=== PATIENT | female | born 1960 | race Caucasian/White ===

== ENCOUNTER → 2016-08-30 | Outpatient (CLI) | payer OTHER ==
[~2016-08-30] MED LIST: ASPI-110 PO; CENTTAB PO; ESTR1TAB PO; FENO145T2 PO; FISH1000 PO; GLIM1TAB PO; LISI-515 PO; MACR100C2 PO; MULTTAB67 PO; [UNRECOGNIZED DRUG - CODE] PO
[2016-08-30 15:12] LABS: BACTERIA, URINE OCC /hpf; BLOOD, URINE NEG (NEG); COMMENT (UR) CULT NOT INDICATED; CULTURE IF INDICATED CULT NOT INDICATED; GLUCOSE,URINE NEG (NEG); KETONE, URINE NEG (NEG); NITRITE,URINE NEG (NEG); PH, URINE 6.5 (5.0-8.5); SQUAMOUS EPITHELIAL CELL URINE 2 /hpf (0-5); URINE COLOR LIGHT-YELLOW (YELLW/STRAW)
--- NOTE | 2016-09-01 11:20 | EKG ---
Date Performed: 08/30/2016 Time Performed: 14:24:23 PTAGE: 56 years EKG: Sinus rhythm NORMAL ECG NO PREVIOUS TRACING DOCTOR: Symone Esposito Interpretating Date/Time 09/01/2016 11:18:13
== END ==
LOC: CPRE 14:04
PROVIDERS: ATTEND Obstetrics & Gynecology Gynecology
DX: N81.10 Cystocele, unspecified (principal); Z01.810 Encounter for preprocedural cardiovascular examination
CPT/HCPCS: 81001; 93005

== ENCOUNTER → 2016-09-05 | Day surgery (SDC) | payer OTHER ==
--- NOTE | 2016-08-30 17:48 | MH ---
cc: OLIVIA LOVETT DATE OF ADMISSION 09/05/2016 DATE OF 1960 REASON FOR ADMISSION Anterior repair. HISTORY OF PRESENT ILLNESS The patient is a 55-year-old white female 2, para 2, largest baby was 10 pounds. The patient has a history of adult onset diabetes. Her sugars had been up in the 200 range with an A1c above eight, but in the last three months she has gotten the sugars down and A1c to now at 6.9. The patient has symptomatic pelvic and organ prolapse anterior compartment with some degree of postvoid residual up to 300 mL. After a long discussion, the patient has opted for surgical correction. PAST MEDICAL HISTORY 1. Adult onset diabetes, 2. Hypertension. MEDICATIONS 1. Lisinopril 20 mg daily 2. ____ 2.5/500 mg one p.o. b.i.d. 3. Glipizide 1 mg daily. ALLERGIES None PAST SURGICAL HISTORY Hysterectomy for benign condition. OBSTETRICAL HISTORY Two vaginal deliveries, largest baby 10 pounds FAMILY HISTORY Noncontributory SOCIAL HISTORY Does not use alcohol, tobacco, caffeine or drugs. Has good social support. REVIEW OF SYSTEMS As above. No chest pain, orthopnea, PND. No nausea, vomiting, fevers or chills. No vaginal bleeding or discharge. Main issue is pelvic pressure, discomfort and difficulty emptying bladder. Remainder of 14-point review negative. PHYSICAL EXAMINATION VITAL SIGNS: She is afebrile. Vital signs stable. Blood pressure 170/80, height 5 feet 9 inches, weight 210, BMI is 31. GENERAL: Patient is alert and oriented in no acute stress, no sign of cognitive function or depression. HEENT: Within normal limits. NECK: Supple. No JVD. CHEST: Clear. HEART: Regular rate and rhythm. ABDOMEN: Soft, nontender. No hepatosplenomegaly. No CVA tenderness. PELVIC: Detailed under anesthesia. In the office we note Aa is -2 point C is -8, postvoid residual was 300 mL after 30 minutes. No significant hypermobility of urethra. Further exam under anesthesia. EXTREMITIES: Normal skin without rashes. NEUROLOGIC: Nonfocal. No DVT signs. ASSESSMENT Patient with symptomatic pelvic organ prolapse and some degree of urinary retention with mild hydronephrosis noted on sonogram. At this point, we discussed options for management and treatment. Although her diabetes had been in relatively poor control, she has managed to get her A1c under seven and I think in light of the postvoid residual and mild hydronephrosis, it makes sense to proceed with surgical correction. It is possible that the postvoid residual was more of a neurogenic issue related to her diabetes, as she does have significant pelvic organ prolapse it may be causing a kinking of the urethra and difficulty in emptying. At this point, she is aware the risks, benefits and alternatives of the planned procedure including damage to surrounding organs, bleeding, infection, possibility of new onset urinary continence as well as failure of repair. Patient has made informed choice to proceed. We will use DVT prophylaxis with sequential compression device, Ancef 1 gram for antibiotic prophylaxis. Anticipate outpatient procedure. MD ALESSANDRO Mckeon/ /4:35 PM /5:27 PM
[~2016-09-05] VITALS: Ht 175.3 cm; Wt 95.9 kg
[~2016-09-05] MED LIST changes: +*ONDANSETRON 4 MG VIAL PERIprocedural Use ONLY ONE; +ACETAMINOPHEN 1000 MG/100 ML VIAL IV ONE; +DO NOT ADM ANY ANTICOAGULANT DRUGS XX PRN; +FAMOTIDINE 20 MG/2 ML VIAL ONE; +INSULIN HUMAN REGULAR 1,000 UNITS/10 ML VIAL SQ PRN; +KETOROLAC TROMETHAMINE 10 MG TAB PO PRN; +KETOROLAC TROMETHAMINE 30 MG/ML (IVP) VIAL IV PUSH PRN; +KETOROLAC TROMETHAMINE 60 MG/2 ML (IM) VIAL IM ONE; +KETOROLAC TROMETHAMINE 60 MG/2 ML (IM) VIAL IM PRN; +LACTATED RINGER'S 1000 ML IV SCH; +LIDOCAINE 1%/EPINEPHrine 1:100,000 SOLN 20 ML VIAL ONE; -MACR100C2 PO; +METHYLENE BLUE 10 MG/ML VIAL OTHER ONE; +METOPROLOL TARTRATE 25 MG TAB PO PRN; +MIDAZOLAM HCL 2 MG/2 ML VIAL ONE; +NEOSTIGMINE 3 MG/3 ML SYR IV ONE; +ONDANSETRON HCL 4 MG/2 ML VIAL IV PUSH PRN; +PHENYLEPH/NS 1000 MCG/10 ML SYR IV ONE; +PROPOFOL 200 MG/20 ML AMP IV ONE; +SODIUM CHLORID 0.9% 500 ML IV SCH; +ceFAZolin 1,000 MG/NS 100 ML IV SCH; +fentaNYL CITRATE 250 MCG/5 ML AMP ONE
[2016-09-05 06:28] VITALS: BP 166/93; PULSE 99; RESP 18; TEMP 97.8; O2SAT 99
[2016-09-05] MEDS: FLUORESCEIN SOD 10% SOLN 500 MG/5 ML AMP ONE ×2 (08:36→08:40)
[2016-09-05 11:20] VITALS: BP 131/82; PULSE 70; RESP 15; TEMP 97.4; O2SAT 99
--- NOTE | 2016-09-07 07:59 | PD.OP ---
Operative Report Date of Surgery: Sep 05, 2016 Preoperative Diagnosis: (1) Cystocele (2) Rectocele (3) Vaginal vault prolapse after hysterectomy Postoperative Diagnosis: (1) Cystocele (2) Rectocele (3) Vaginal vault prolapse after hysterectomy Procedure: ANTERIOR/POSTERIOR REPAIR WITH ENTEROCELE VAGINAL SUSPENSION CYSTOSCOPY Anesthesia: GETA Surgeon: Jose Antonio Garcia Geochemical Manager(s): [place] X 2 Operation and Findings: STAGE 2 ANTERIOR AND POSTERIOR VAGINAL WALL PROLAPSE STAGE 2 VAGINAL APICAL PROLAPSE NORMAL BLADDER WITH CYSTOSCOPY SEE DICTATED NOTE FOR OPERATIVE TECHNIQUE OF A/P REPAIR WITH ENTEROCELE, VAGINAL VAULT SUSPENSION, AND CYSTOSCOPY EBL 25 CC FLUIDS 1000 LR DRAINS GUZMÁN TO RR GOOD CONDITION Jose Antonio Garcia MD Sep 07, 2016 07:59
--- NOTE | 2016-09-07 17:51 | MP ---
cc: OLIVIA LOVETT MD DATE OF SURGERY: 09/05/2016 PREOPERATIVE DIAGNOSIS: Symptomatic cystocele with retention POSTOPERATIVE DIAGNOSES 1. Midline cystocele stage III 2. Rectocele with enterocele stage II 3. Vaginal vault prolapse following prior hysterectomy, stage II Urinary retention etiology uncertain. PROCEDURE 1. Anterior posterior repair with enterocele 2. Extraperitoneal coccygeus vaginal apical suspension DIAGNOSTICS Cystoscopy coupled with diagnosis of retention SURGEON Dr. Lovett ANESTHESIA General tracheal BLOOD LOSS 25 cc URINE OUTPUT 600 cc FLUIDS: 1006, crystalloid. PRODUCT MGR: [place] staff x2 SURGEON Olivia Lovett MD. FINDINGS Genitalia poorly estrogenized pop Q score Aa is +1, Ap is zero. Point C is -1, total vaginal length is 10, genital hiatus is six. Following repair Aa -3, Ap is -3, point C is -8, total vaginal length is nine. General hiatus is five. Perineal body is five. Cystoscopy shows normal trigone good coaptation of urethra. Ureteral orifices patent x2. Dome base of bladder normal. No etiology identified for retention other than possibly a neurogenic issue with diabetes or significant anterior compartment prolapse. Rectal exam normal following repair. SPECIMENS Vaginal mucosa trimmed but not sent. COMPLICATIONS None DISPOSITION Recovery room stable and sponge, needle, sponge correct. Drains Everett catheter antibiotic prophylaxis Ancef 1 gram DVT prophylaxis sequential compression device. The time-out procedure per protocol SUMMARY/INDICATION PROCEDURE: Patient with symptomatic anterior compartment prolapse with urinary retention. The patient has a history of adult onset diabetes which up to recently was relatively poorly controlled. The etiology of her urinary retention was thought to be either significant anterior compartment prolapse or issues related to her diabetes. The patient also had consented to any additional repairs that were obvious under exam under anesthesia. PROCEDURE: The patient taken operating theater, was then and prepped and draped in fashion, for planned procedure. She was in dorsal lithotomy position with careful attention paid to pad legs and place in stirrups to avoid undue stress to sensitive vascular structures. Above findings noted. Neurovascular rate documented. Everett catheter was placed methylene blue was instilled into the bladder. The patient significant anterior apartment defect and had a 600 cc of urine drained prior to procedure, Epinephrine/lidocaine was used to infiltrated vaginal mucosa. An incision was made from the apex to approximate 1 cm from the meatus. There was no spilled methylene blue with dissection. Cystocele repair performed without complication using absorbable suture, the vaginal mucosa was trimmed and closed with a running Vicryl suture. Hemostatic matrix was used for hemostasis. Cystoscopy performed using 17-Anguillan bridge a 70 degrees scope. The patient also received fluorescein 1 cc IV above findings were noted. Ureteral patency was documented. No significant findings noted that would explain her retention. The anterior compartment repair was completed this remains significant apical and posterior prolapse. The vaginal mucosa was infiltrated in the posterior compartment with epinephrine and lidocaine solution. the incision was taken from the perineal body to the apex. The vaginal mucosa was reflected from the rectum with one finger in the rectum to give us traction and countertraction and to confirm there is no damage to the rectum. Enterocele was encountered and closed with pursestring suture. The rectocele repair performed standard fashion with delayed absorbable suture. Coccygeus extraperitoneal suspension was performed without complication giving excellent apical support. Vaginal mucosa was trimmed hemostatic matrix was used for hemostasis vaginal cuff was closed with a running Vicryl suture. Rectal exam normal following repair. Above findings noted. Hemostasis was noted at all incision sites. The patient reversed from anesthesia and taken to recover stable condition. MD ALESSANDRO Mckeon/ngoc /9:55 AM /5:01 PM
== END | disposition home or self-care (01) ==
LOC: HSDC 05:38 → EDUNIT# 08:00
PROVIDERS: ATTEND Obstetrics & Gynecology Gynecology
DX: N99.3 Prolapse of vaginal vault after hysterectomy (principal); R33.9 Retention of urine, unspecified; I10 Essential (primary) hypertension; N13.30 Unspecified hydronephrosis; Z90.710 Acquired absence of both cervix and uterus
CPT/HCPCS: 00840; 57265; 57282; J0131; J0690; J1885; J2250; J2370; J2405; J2710; J3010; J7120